=== PATIENT | female | born 1970 | race Caucasian/White ===

== ENCOUNTER 2023-07-27 14:14 | Emergency (ER) | payer OTHER ==
[2023-07-27 14:48] VITALS: BP 122/72; PULSE 66; RESP 18; TEMP 98.9; BMI 20.7
== END 2023-07-27 15:18 | disposition home or self-care (01) ==
LOC: FER 14:14
DX: L03.116 Cellulitis of left lower limb (principal)
CPT/HCPCS: 99282-25